=== PATIENT | male | born 1950 | race Caucasian/White ===

== ENCOUNTER 2023-08-21 07:02 | Day surgery (SDC) | payer MEDICARE, SELFPAY ==
--- NOTE | 2023-08-21 06:50 | W.PREOPHP ---
Assessment and Plan Assessment and plan (1) Nuclear age-related cataract, right eye: Status: Acute Assessment and plan: Assessment: Visually significant cataract of the right eye. Plan: Cataract extraction with lens implantation of the right eye. (2) Cortical age-related cataract, right eye: Status: Acute Assessment and plan: Assessment: Visually significant cataract of the right eye. Plan: Cataract extraction with lens implantation of the right eye (3) Posterior subcapsular age-related cataract, right eye: Status: Acute Assessment and plan: Assessment: Visually significant cataract of the right eye. Plan: Cataract extraction with lens implantation of the right eye History of Present Illness History of Present Illness Chief Complaint: Progressive decreased vision, both eyes Narrative: The patient is a 72-year-old male who presents with progressive decreased vision in both eyes at both distance and near, especially near. He notes significant difficulty reading. He has difficulty with glare at night. He notes his vision is foggy and his glasses do not work well. Review of Systems All systems reviewed & are unremarkable except as noted in HPI and below PFSH All Active Problems Nuclear age-related cataract, right eye (Acute) Cortical age-related cataract, right eye (Acute) Posterior subcapsular age-related cataract, right eye (Acute) Medical History Chronic arthritis Coronary arteriosclerosis GERD (gastroesophageal reflux disease) History of myocardial problem HLD (hyperlipidemia) Hx of cardiomyopathy Per pt. F/U with Dr. Kaufman annually. Hx of hiatal hernia Hx of myocardial infarction 11/2019 Psoriasis Seasonal allergic rhinitis Surgical History (Updated 08/21/23 @ 07:25 by Richmond Adkins) History of fundoplication Hx of tonsillectomy Social History Smoking/Tobacco Use Status: Former Tobacco Use Quit Date: 11/16/17 Smoking risk assessment performed?: Yes Alcohol Intake: current Alcohol Intake frequency: a few times a month Alcohol type: wine Drug use: Never Substance use type: does not use Housing: house Do you feel safe at home: Yes Do you feel safe in your relationship?: Yes Meds Allergies and Home Medications Allergies Allergy/AdvReac Type Severity Reaction Status Date / Time No Known Allergies Allergy Unverified 08/20/23 13:47 Home Medications Medication Instructions Recorded Confirmed Type ascorbic acid (vitamin C) 500 mg 500 mg PO DAILY 08/19/23 08/21/23 History tablet (Vitamin C) bupropion HCl 300 mg 24 hr tablet, 300 mg PO DAILY 08/19/23 08/21/23 History extended release cholecalciferol (vitamin D3) 50 2,000 unit PO DAILY 08/19/23 08/21/23 History mcg (2,000 unit) tablet (Vitamin D3) clobetasol 0.05 % topical gel 1 applic topical BID 08/19/23 08/20/23 History gabapentin 600 mg tablet 600 mg PO TID 08/19/23 08/21/23 History levothyroxine 25 mcg tablet 25 mcg PO DAILY 08/19/23 08/21/23 History mecobalamin (vitamin B12) 1,000 500 mcg PO DAILY 08/19/23 08/21/23 History mcg chewable tablet (B12 Active) metoprolol succinate 25 mg 25 mg PO DAILY 08/19/23 08/21/23 History tablet,extended release 24 hr mometasone 0.1 % topical cream 1 applic topical BID 08/19/23 08/20/23 History multivitamin 1 tab PO DAILY 08/19/23 08/21/23 History naproxen 500 mg tablet 500 mg PO BID 08/19/23 08/21/23 History simvastatin 20 mg tablet 20 mg PO HS 08/19/23 08/21/23 History Exam Eyes Other: Most recent ocular examination revealed corrected visual acuity of 20/20 OD, 20/25 OS. Extract motility is normal. Intraocular pressure is 11 OD, 10 OS. Slit-lamp examination is significant for pupils dilating to 6 mm OU. Mild cortical cataract OU. Mild nuclear cataract OU. Trace posterior subcapsular cataracts OU. Funduscopic examination reveals disc cupping of 0.3 OU with normal vessels, macula, peripheral retina and vitreous. Resp Auscultation: clear to auscultation bilaterally Cardio Rate: regular rate Rhythm: regular rhythm
[2023-08-21 07:32] VITALS: BP 140/78; PULSE 61; RESP 16; TEMP 36.5; O2SAT 99
[2023-08-21] MEDS: Tropicam./Phenyleph. (1/2.5%) 5 ML BTL OD ×3 (07:43→07:57)
--- NOTE | 2023-08-21 08:29 | W.ANESPRE ---
General Info Date of Service Date Performed: 08/21/23 Height: 5 ft 2 in Weight: 56.4 kg Body Mass Index (BMI): 22.7 Surgical Procedure: Operation Date: 08/21/23 09:40 Proposed Procedure Side Surgeon p Cataract Extraction with IOL Implant Right Bj Barrett MD Meds Allergies and Home Medications Allergies Allergy/AdvReac Type Severity Reaction Status Date / Time No Known Allergies Allergy Unverified 08/20/23 13:47 Home Medication Medication Instructions Recorded ascorbic acid (vitamin C) 500 mg 500 mg PO DAILY 08/19/23 tablet (Vitamin C) bupropion HCl 300 mg 24 hr tablet, 300 mg PO DAILY 08/19/23 extended release cholecalciferol (vitamin D3) 50 2,000 unit PO DAILY 08/19/23 mcg (2,000 unit) tablet (Vitamin D3) clobetasol 0.05 % topical gel 1 applic topical BID 08/19/23 gabapentin 600 mg tablet 600 mg PO TID 08/19/23 levothyroxine 25 mcg tablet 25 mcg PO DAILY 08/19/23 mecobalamin (vitamin B12) 1,000 500 mcg PO DAILY 08/19/23 mcg chewable tablet (B12 Active) metoprolol succinate 25 mg 25 mg PO DAILY 08/19/23 tablet,extended release 24 hr mometasone 0.1 % topical cream 1 applic topical BID 08/19/23 multivitamin 1 tab PO DAILY 08/19/23 naproxen 500 mg tablet 500 mg PO BID 08/19/23 simvastatin 20 mg tablet 20 mg PO HS 08/19/23 Current Visit Medications: Current Medications Generic Name Dose Route Start Last Admin Trade Name Zuhairq PRN Reason Stop Dose Admin Acetaminophen 1,000 mg 08/21/23 06:00 Acetaminophen 500 Mg Tab PO 09/20/23 05:59 Q4H PRN PRN Balanced Salt Solution 500 ml 08/21/23 06:00 Balanced Salt Soln.-Plus 500 Ml Bag OP 09/20/23 05:59 DIRECTED EH Miscellaneous Medication 0 ml 08/21/23 06:00 Prednisolone 1%, Moxifloxacin 0.5%, Nepafenac 0.1% 5ml Btl OD 09/20/23 05:59 DIRECTED EH Miscellaneous Medication 0 ml 08/21/23 06:00 08/21/23 07:57 Tropicam./Phenyleph. (1/2.5%) 5 Ml Btl OD 09/20/23 05:59 1 drp DIRECTED EH Administration Tetracaine HCl 0 ml 08/21/23 06:00 Tetracaine 0.5% 4 Ml Btl OD 09/20/23 05:59 DIRECTED EH PFSH Active Problems Active Problems: Problem Status Onset Code Nuclear age-related cataract, right eye H25.11 Cortical age-related cataract, right eye H25.011 Posterior subcapsular age-related cataract, right eye H25.041 Medical History Medical History Chronic arthritis Coronary arteriosclerosis GERD (gastroesophageal reflux disease) History of myocardial problem HLD (hyperlipidemia) Hx of cardiomyopathy Per pt. F/U with Dr. Kaufman annually. Hx of hiatal hernia Hx of myocardial infarction 11/2019 Psoriasis Seasonal allergic rhinitis Surgical History Surgical History (Updated 08/21/23 @ 07:25 by Richmond Adkins) History of fundoplication Hx of tonsillectomy Tobacco Smoking/Tobacco Use Status: Former Tobacco Use Alcohol Alcohol Intake: current Alcohol intake frequency: a few times a month Alcohol type: wine Substance Use Substance use: Never Substance use type: does not use Vital Signs and Lab Results Vital Signs Most Recent Vital Signs in EMR: Most Recent Vital Signs Temp Pulse Resp BP Pulse Ox 36.5 C 61 16 140/78 99 08/21/23 07:32 08/21/23 07:32 08/21/23 07:32 08/21/23 07:32 08/21/23 07:32 Lab Results Blood Type / Crossmatch: No Data to Display Complete Blood Count: No Data to Display Complete Metabolic Panel: No Data to Display Liver Function Panel: No Data to Display Coagulation Panel: No Data to Display Cardiac Panel: No Data to Display Arterial Blood Gas: No Data to Display Venous Blood Gas: No Data to Display Pancreas Panel: No Data to Display Thyroid Panel: No Data to Display Infectious Disease: No Data to Display Blood Cultures: No Data to Display Toxicology Panel: No Data to Display Anesthesia Assessment and Plan Anesthesia History Personal History: No History of Anesthesia Complications Family History: No Family History of Anesthesia Complications Exercise Tolerance Exercise Tolerance: Metabolic Equivalents>4 Pertinent Negatives Pertinent Negatives: No Symptoms of GERD, No Major Cardiovascular Symptoms or Complaints and No Major Pulmonary Symptoms or Complaints Cardiac & Pulmonary Exam Cardiac Exam: Normal S1/S2 Heart Sounds Pulmonary Exam: Clear Bilateral Breath Sounds Implantable Cardiac Device Does patient have a Pacemaker or an ICD?: No Airway Exam Known Difficult Airway: No Mallampati Class: 2 Mouth Opening: Normal (> 3cm) Thyromental Distance: Greater than 3 cm Neck Range of Motion: Full ROM Neck Circumference: Normal Teeth Condition: Normal Dentition and Loose or Chipped (a couple of chipped teeth nothing loose per patient) ASA Classification ASA Score: ASA 2 Emergency Case?: No NPO Status NPO Status: NPO Clears >2 hours, Solids >8 hours Anesthesia Plan Resuscitation Status: Full Code Anesthesia Technique: MAC Anesthesia Airway Planned: Natural Airway Monitors Used: Standard Monitors
[2023-08-21 09:11] VITALS: BMI 22.7
[2023-08-21] MEDS: Tetracaine 0.5% 4 ML BTL OD (09:12)
[2023-08-21] MEDS: Povidone-Iodine Ophth 30 ML BTL (09:14)
[2023-08-21] MEDS: Phenylephrine/Lidocaine (15/10) MG/ML 1 ML VIAL (09:17)
[2023-08-21] MEDS: Balanced Salt Soln.-PLUS 500 ML BAG OP (09:17)
[2023-08-21] MEDS: Duovisc Viscoelastic System EACH 1 EACH (09:17)
[2023-08-21] MEDS: Lidocaine 1% Pres-Free 5 ML VIAL (09:18)
[2023-08-21 09:36] VITALS: BP 136/81; PULSE 61; RESP 18; TEMP 36.6; O2SAT 99
--- NOTE | 2023-08-21 09:36 | W.PM.DSUDISC ---
Date of service: 08/21/23 Time of Service: 09:36 Discharge Plan Disposition Patient Disposition: Home Discharge Details Attending Provider: Bj Barrett Primary Care Provider: Judith Vick Home Meds and New Rx's Prescriptions: No Action multivitamin Tablet 1 tab PO DAILY gabapentin 600 mg Tablet 600 mg PO TID levothyroxine 25 mcg Tablet 25 mcg PO DAILY clobetasol 0.05 % Gel 1 applic TOPICAL BID ascorbic acid (vitamin C) [Vitamin C] 500 mg Tablet 500 mg PO DAILY simvastatin 20 mg Tablet 20 mg PO HS metoprolol succinate 25 mg Tablet Extended Release 24 Hr 25 mg PO DAILY naproxen 500 mg Tablet 500 mg PO BID mometasone 0.1 % Cream 1 applic TOPICAL BID bupropion HCl 300 mg Tablet Extended Release 24 Hr 300 mg PO DAILY cholecalciferol (vitamin D3) [Vitamin D3] 50 mcg (2,000 unit) Tablet 2,000 unit PO DAILY mecobalamin (vitamin B12) [B12 Active] 1,000 mcg Tablet,Chewable 500 mcg PO DAILY Discharge Instructions Stand Alone Forms: Post-op Topical Cataract, Renee Zurita (DSU) Discharge Orders Discharge Orders: Discharge Order (Routine); Ordered 08/21/23 Ordered By: Bj Barrett DS: Diagnosis Discharge Diagnosis (1) Nuclear age-related cataract, right eye: Status: Resolved (2) Cortical age-related cataract, right eye: Status: Resolved (3) Posterior subcapsular age-related cataract, right eye: Status: Resolved
--- NOTE | 2023-08-21 09:40 | W.PM.OP ---
Date of service: 08/21/23 Time of Service: 09:40 Operative Note Operative Note DATE OF PROCEDURE: 08/21/23 PRE-OP DIAGNOSIS: Nuclear/cortical/posterior subcapsular cataract, right eye POST-OP DIAGNOSIS: same PROCEDURE: Cataract extraction using phacoemulsification with intraocular lens implant, right eye SURGEON: Bj Barrett ANESTHESIA TYPE: Local By Surgeon and MAC Refer to Anesthesia Record ESTIMATED BLOOD LOSS: 0 PATHOLOGY: none sent COMPLICATIONS: None Patient was transported to: same day Patient's condition: stable Implants: Darrell Clareon [id number] Indications: Progressive decreased vision due to cataract, right eye Procedure Description: CATARACT SURGERY OPERATIVE REPORT PREOPERATIVE DIAGNOSIS: Nuclear/cortical/posterior subcapsular cataract, right eye POSTOPERATIVE DIAGNOSIS: Same OPERATION: Cataract extraction using phacoemulsification with posterior chamber intraocular lens implant, right eye. IOL: IOL Video News Editor/Model: Darrell Clareon [id number] IOL Power: + 14.5 diopters IOL Serial Number: [id number] Optic Diameter: 6.0mm Haptic/Overall Diameter: 13.0mm PHACO INFO: Darrell Origami Logicurion Vision System with OZil and Active Fluidics Cumulative Dispersed Energy (CDE): 3.85 seconds SURGEON: Bj Barrett MD, RADHA ANESTHESIA: Monitored Anesthesia Care (MAC), with local sub-tenon's anesthetic infiltration COMPLICATIONS: None SPECIMENS: None INDICATIONS FOR PROCEDURE: The patient is a 73-year-old male with history of myopic astigmatism who has developed a symptomatic nuclear/cortical/posterior subcapsular cataract in the right eye. He is significantly symptomatic that he desires cataract surgery and attempt to improve and maximize his vision. The option of cataract surgery was offered to the patient and he wished to proceed. See office notes for detailed information. PROCEDURE: The correct surgical eye was identified and marked as the right eye and the pupil was dilated in the preoperative area using mydriatics and cycloplegics. The dilated pupil size was 7.0 mm. The patient elected to proceed without oral sedation. The patient was brought to the operating room where cardiopulmonary monitoring was instituted and surgical time-out was performed, confirming the correct operative eye and IOL power. Topical anesthesia was administered and ophthalmic povidone-iodine 5% was instilled into the conjunctival fornices. The mercedez-ocular area was prepped with Betadine 10% solution and draped in the usual sterile fashion for intraocular surgery, including an aperture drape. A Tegaderm transparent film dressing was cut in half and used to cover the lashes and lid margins. Care was taken to sequester the lashes and lid margins under the Tegaderm dressing. A lid speculum was placed between the lids of the operative eye and the Analy-Destin operating microscope was maneuvered into position. Anurag scissors were then used to make a conjunctival buttonhole approximately 6mm posterior to the limbus in the inferonasal quadrant. Blunt dissection was carried out to expose bare sclera, and a blunt-tipped sub-tenon?s anesthesia cannula was introduced and passed posteriorly along the globe where non-preserved plain lidocaine was injected into posterior sub-Tenon?s space. A sideport knife was used to make a paracentesis port. Intraocular phenylephrine/lidocaine was injected into the anterior chamber. The anterior chamber was then filled with viscoelastic. A keratome knife was used to construct a two--plane clear corneal tunnel extending 2.0mm into clear cornea. A flap was raised on the anterior capsule and capsulorhexis forceps were used to complete a continuous curvilinear capsulorhexis of 5.5 mm. Balanced salt solution was then used to perform cortical cleaving hydrodissection and nuclear hydrodelineation until the lens could be freely rotated within the capsular bag. The lens nucleus was then disassembled and removed within the capsular bag and iris plane using phacoemulsification. Residual cortical material was removed using the I/A handpiece. The posterior capsule was carefully polished to remove as much residual lens epithelial cells as safely possible. The capsular bag was then inflated and the anterior chamber deepened with cohesive viscoelastic. The lens implant described above was inserted into the capsular bag using the Darrell Autonome Injector. A Kuglen hook was used to dial the IOL into position. Residual viscoelastic was then removed first from posterior to the IOL, then from the anterior chamber using the I/A handpiece. The lens implant was noted to center nicely within the capsular bag. The incisions were stromally hydrated, and the anterior chamber was reformed using BSS. Then 0.5cc of moxifloxacin 1.0mg/ml were injected into the capsular bag and anterior chamber. The incisions were checked with a Weck spear and found to be secure. Several drops of ophthalmic povidone-iodine 5% were then applied to the eye followed by two drops of Imprimis combination prednisolone/moxifloxacin/nepafenac solution. The drapes were removed and a clear plastic protective eye shield was placed over the eye. The patient was then returned to [facility] in stable condition.
--- NOTE | 2023-08-21 10:08 | W.ANESPOSTOP ---
Postoperative Evaluation Date, Time and Location Date Performed: 08/21/23 Time Performed: 09:42 Patient Location: Day Surgery Unit Vital Signs Most Recent Imported Vital Signs: Most Recent Vital Signs Temp Pulse Resp BP Pulse Ox 36.6 C 61 18 136/81 99 08/21/23 09:36 08/21/23 09:36 08/21/23 09:36 08/21/23 09:36 08/21/23 09:36 Pain Score Most Recent Pain Score: Most Recent Pain Score Pain Level 0 08/21/23 09:36 Assessment Mental Status: Awake (Alert & Oriented to Patient Baseline) Airway and Respiratory Function: Patent airway with normal (patient baseline) respiratory exam Cardiovascular Function: Hemodynamically Stable Hydration Status: Adequately Hydrated Nausea & Vomiting: No Nausea or Vomiting Pain: Pt. Denies Any Pain Peripheral Nerve Block: Patient did not receive a nerve block
== END 2023-08-21 09:57 | disposition home or self-care (01) ==
PROVIDERS: PCP Nurse Practitioner Family; Visit Provider Ophthalmology
PROC: (CPT 66984; principal; 2023-08-21 09:30)
DX: H25.11 Age-related nuclear cataract, right eye (principal); H25.011 Cortical age-related cataract, right eye; H25.041 Posterior subcapsular polar age-related cataract, right eye; K21.9 Gastro-esophageal reflux disease without esophagitis
CPT/HCPCS: 66984; V2632

== ENCOUNTER 2023-09-04 07:17 | Day surgery (SDC) | payer MEDICARE, SELFPAY ==
[2023-09-04 07:28] VITALS: BP 130/82; PULSE 69; RESP 16; TEMP 36.6; O2SAT 97
[2023-09-04] MEDS: Tropicam./Phenyleph. (1/2.5%) 5 ML BTL OS ×3 (07:35→07:52)
--- NOTE | 2023-09-04 08:11 | W.ANESPRE ---
General Info Date of Service Date Performed: 09/04/23 Height: 5 ft 2 in Weight: 56 kg Body Mass Index (BMI): 22.6 Surgical Procedure: Operation Date: 09/04/23 09:40 Proposed Procedure Side Surgeon p Cataract Extraction with IOL Implant Left Bj Barrett MD Meds Allergies and Home Medications Allergies Allergy/AdvReac Type Severity Reaction Status Date / Time No Known Allergies Allergy Unverified 09/04/23 07:39 Home Medication Medication Instructions Recorded ascorbic acid (vitamin C) 500 mg 500 mg PO DAILY 08/19/23 tablet (Vitamin C) bupropion HCl 300 mg 24 hr tablet, 300 mg PO DAILY 08/19/23 extended release cholecalciferol (vitamin D3) 50 2,000 unit PO DAILY 08/19/23 mcg (2,000 unit) tablet (Vitamin D3) clobetasol 0.05 % topical gel 1 applic topical BID 08/19/23 gabapentin 600 mg tablet 600 mg PO TID 08/19/23 levothyroxine 25 mcg tablet 25 mcg PO DAILY 08/19/23 mecobalamin (vitamin B12) 1,000 500 mcg PO DAILY 08/19/23 mcg chewable tablet (B12 Active) metoprolol succinate 25 mg 25 mg PO DAILY 08/19/23 tablet,extended release 24 hr mometasone 0.1 % topical cream 1 applic topical BID 08/19/23 multivitamin 1 tab PO DAILY 08/19/23 naproxen 500 mg tablet 500 mg PO BID 08/19/23 simvastatin 20 mg tablet 20 mg PO HS 08/19/23 Current Visit Medications: Current Medications Generic Name Dose Route Start Last Admin Trade Name Zuhairq PRN Reason Stop Dose Admin Acetaminophen 1,000 mg 09/04/23 06:00 Acetaminophen 500 Mg Tab PO 10/04/23 05:59 Q4H PRN PRN Balanced Salt Solution 500 ml 09/04/23 06:00 Balanced Salt Soln.-Plus 500 Ml Bag OP 10/04/23 05:59 DIRECTED EH Miscellaneous Medication 0 ml 09/04/23 06:00 Prednisolone 1%, Moxifloxacin 0.5%, Nepafenac 0.1% 5ml Btl OS 10/04/23 05:59 DIRECTED EH Miscellaneous Medication 0 ml 09/04/23 06:00 09/04/23 07:52 Tropicam./Phenyleph. (1/2.5%) 5 Ml Btl OS 10/04/23 05:59 1 drp DIRECTED EH Administration Tetracaine HCl 0 ml 09/04/23 06:00 Tetracaine 0.5% 4 Ml Btl OS 10/04/23 05:59 DIRECTED EH PFSH Active Problems Active Problems: Problem Status Onset Code Posterior subcapsular age-related cataract of left eye H25.042 Cortical age-related cataract, left eye H25.012 Nuclear age-related cataract, left eye H25.12 Nuclear age-related cataract, right eye H25.11 Cortical age-related cataract, right eye H25.011 Posterior subcapsular age-related cataract, right eye H25.041 Medical History Medical History Hx of cardiomyopathy Per pt. F/U with Dr. Kaufman annually. Hx of myocardial infarction 11/2019 Hx of hiatal hernia HLD (hyperlipidemia) Psoriasis Coronary arteriosclerosis History of myocardial problem GERD (gastroesophageal reflux disease) Chronic arthritis Seasonal allergic rhinitis Surgical History Surgical History Hx of tonsillectomy History of fundoplication Tobacco Smoking/Tobacco Use Status: Former Tobacco Use Alcohol Alcohol Intake: current Alcohol intake frequency: a few times a month Alcohol type: wine Substance Use Substance use: Never Substance use type: does not use Vital Signs and Lab Results Vital Signs Most Recent Vital Signs in EMR: Most Recent Vital Signs Temp Pulse Resp BP Pulse Ox 36.6 C 69 16 130/82 97 09/04/23 07:28 09/04/23 07:28 09/04/23 07:28 09/04/23 07:28 09/04/23 07:28 Lab Results Blood Type / Crossmatch: No Data to Display Complete Blood Count: No Data to Display Complete Metabolic Panel: No Data to Display Liver Function Panel: No Data to Display Coagulation Panel: No Data to Display Cardiac Panel: No Data to Display Arterial Blood Gas: No Data to Display Venous Blood Gas: No Data to Display Pancreas Panel: No Data to Display Thyroid Panel: No Data to Display Infectious Disease: No Data to Display Blood Cultures: No Data to Display Toxicology Panel: No Data to Display Anesthesia Assessment and Plan Anesthesia History Personal History: No History of Anesthesia Complications Family History: No Family History of Anesthesia Complications Exercise Tolerance Exercise Tolerance: Metabolic Equivalents>4 Pertinent Negatives Pertinent Negatives: No Major Cardiovascular Symptoms or Complaints and No Major Pulmonary Symptoms or Complaints Cardiac & Pulmonary Exam Cardiac Exam: Normal S1/S2 Heart Sounds Pulmonary Exam: Clear Bilateral Breath Sounds Implantable Cardiac Device Does patient have a Pacemaker or an ICD?: No Airway Exam Known Difficult Airway: No Mallampati Class: 2 Mouth Opening: Normal (> 3cm) Thyromental Distance: Greater than 3 cm Neck Range of Motion: Full ROM Neck Circumference: Normal Teeth Condition: Normal Dentition and Loose or Chipped (a couple of chipped teeth nothing loose per patient) ASA Classification ASA Score: ASA 2 Emergency Case?: No NPO Status NPO Status: NPO Clears >2 hours, Solids >8 hours Anesthesia Plan Resuscitation Status: Full Code Anesthesia Technique: MAC Anesthesia Airway Planned: Natural Airway Monitors Used: Standard Monitors
[2023-09-04 08:12] VITALS: BMI 22.6
[2023-09-04] MEDS: Balanced Salt Soln.-PLUS 500 ML BAG OP (08:59)
[2023-09-04] MEDS: Tetracaine 0.5% 4 ML BTL OS (09:01)
[2023-09-04] MEDS: Duovisc Viscoelastic System EACH 1 EACH (09:01)
[2023-09-04] MEDS: Lidocaine 1% Pres-Free 5 ML VIAL (09:02)
[2023-09-04] MEDS: Povidone-Iodine Ophth 30 ML BTL (09:04)
[2023-09-04] MEDS: Phenylephrine/Lidocaine (15/10) MG/ML 1 ML VIAL (09:04)
--- NOTE | 2023-09-04 09:19 | W.PM.DSUDISC ---
Date of service: 09/04/23 Time of Service: 09:19 Discharge Plan Disposition Patient Disposition: Home Discharge Details Attending Provider: Bj Barrett Primary Care Provider: Judith Vick Home Meds and New Rx's Prescriptions: No Action multivitamin Tablet 1 tab PO DAILY gabapentin 600 mg Tablet 600 mg PO TID levothyroxine 25 mcg Tablet 25 mcg PO DAILY clobetasol 0.05 % Gel 1 applic TOPICAL BID ascorbic acid (vitamin C) [Vitamin C] 500 mg Tablet 500 mg PO DAILY simvastatin 20 mg Tablet 20 mg PO HS metoprolol succinate 25 mg Tablet Extended Release 24 Hr 25 mg PO DAILY naproxen 500 mg Tablet 500 mg PO BID mometasone 0.1 % Cream 1 applic TOPICAL BID bupropion HCl 300 mg Tablet Extended Release 24 Hr 300 mg PO DAILY cholecalciferol (vitamin D3) [Vitamin D3] 50 mcg (2,000 unit) Tablet 2,000 unit PO DAILY mecobalamin (vitamin B12) [B12 Active] 1,000 mcg Tablet,Chewable 500 mcg PO DAILY Discharge Instructions Stand Alone Forms: Post-op Topical Cataract, Renee Zurita (DSU) Discharge Orders Discharge Orders: Discharge Order (Routine); Ordered 09/04/23 Ordered By: Bj Barrett DS: Diagnosis Discharge Diagnosis (1) Posterior subcapsular age-related cataract of left eye: Status: Resolved (2) Cortical age-related cataract, left eye: Status: Resolved (3) Nuclear age-related cataract, left eye: Status: Resolved
[2023-09-04 09:20] VITALS: BP 128/85; PULSE 63; RESP 16; TEMP 36.3; O2SAT 97
--- NOTE | 2023-09-04 09:20 | W.PM.OP ---
Date of service: 09/04/23 Time of Service: 09:20 Operative Note Operative Note DATE OF PROCEDURE: 09/04/23 POST-OP DIAGNOSIS: same PROCEDURE: Cataract extraction using phacoemulsification with intraocular lens implant, left eye SURGEON: Bj Barrett ANESTHESIA TYPE: Local By Surgeon and MAC Refer to Anesthesia Record PATHOLOGY: none sent COMPLICATIONS: None Patient was transported to: same day Patient's condition: stable Implants: Darrell Clareon [id number] Indications: Progressive decreased vision due to cataract, left eye Procedure Description: CATARACT SURGERY OPERATIVE REPORT PREOPERATIVE DIAGNOSIS: Nuclear/cortical/posterior subcapsular cataract, left eye POSTOPERATIVE DIAGNOSIS: Same OPERATION: Cataract extraction using phacoemulsification with posterior chamber intraocular lens implant, left eye. IOL: IOL Artist Mannequin Coloring/Model: Darrell Clareon [id number] IOL Power: + 15.0 diopters IOL Serial Number: [id number] Optic Diameter: 6.0mm Haptic/Overall Diameter: 13.0mm PHACO INFO: Darrell Valence Healthurion Vision System with OZil and Active Fluidics Cumulative Dispersed Energy (CDE): 8.15 seconds SURGEON: Bj Barrett MD, RADHA ANESTHESIA: Monitored Anesthesia Care (MAC), with local sub-tenon's anesthetic infiltration COMPLICATIONS: None SPECIMENS: None INDICATIONS FOR PROCEDURE: The patient is a 73-year-old gentleman with history of diminished visual acuity in both eyes secondary to the development of bilateral nuclear/cortical/posterior subcapsular cataract. He has already undergone cataract surgery in the right eye and is doing well postoperatively. He now presents for cataract surgery in the left eye. See office notes for detailed information. PROCEDURE: The correct surgical eye was identified and marked as the left eye and the pupil was dilated in the preoperative area using mydriatics and cycloplegics. The dilated pupil size was 7.0 mm. The patient elected to proceed without oral sedation. The patient was brought to the operating room where cardiopulmonary monitoring was instituted and surgical time-out was performed, confirming the correct operative eye and IOL power. Topical anesthesia was administered and ophthalmic povidone-iodine 5% was instilled into the conjunctival fornices. The mercedez-ocular area was prepped with Betadine 10% solution and draped in the usual sterile fashion for intraocular surgery, including an aperture drape. A Tegaderm transparent film dressing was cut in half and used to cover the lashes and lid margins. Care was taken to sequester the lashes and lid margins under the Tegaderm dressing. A lid speculum was placed between the lids of the operative eye and the Darrell LuxOR Revalia operating microscope was maneuvered into position. Anurag scissors were then used to make a conjunctival buttonhole approximately 6mm posterior to the limbus in the inferonasal quadrant. Blunt dissection was carried out to expose bare sclera, and a blunt-tipped sub-tenon?s anesthesia cannula was introduced and passed posteriorly along the globe where non-preserved plain lidocaine was injected into posterior sub-Tenon?s space. A sideport knife was used to make a paracentesis port. Intraocular phenylephrine/lidocaine was injected into the anterior chamber. The anterior chamber was then filled with viscoelastic. A keratome knife was used construct a two-plane clear corneal tunnel extending 2.0mm into clear cornea. A flap was raised on the anterior capsule and capsulorhexis forceps were used to complete a continuous curvilinear capsulorhexis of 5.5 mm. Balanced salt solution was then used to perform cortical cleaving hydrodissection and nuclear hydrodelineation until the lens could be freely rotated within the capsular bag. The lens nucleus was then disassembled and removed within the capsular bag and iris plane using phacoemulsification. Residual cortical material was removed using the irrigation/aspiration handpiece. The posterior capsule was carefully polished to remove as much residual lens epithelial cells as safely possible. The capsular bag was then inflated and the anterior chamber deepened with viscoelastic. The lens implant described above was inserted into the capsular bag using the Darrell Autonome Injector. A Kuglen hook was used to dial the IOL into position. Residual viscoelastic was then removed first from posterior to the IOL, then from the anterior chamber using the I/A handpiece. The lens implant was noted to center nicely within the capsular bag. The incisions were stromally hydrated, and the anterior chamber was reformed using BSS. Then 0.5cc of moxifloxacin 1.0mg/ml were injected into the capsular bag and anterior chamber. The incisions were checked with a Weck spear and found to be secure. Several drops of ophthalmic povidone-iodine 5% were then applied to the eye followed by two drops of Imprimis combination prednisolone/moxifloxacin/nepafenac solution. The drapes were removed and a clear plastic protective eye shield was placed over the eye. The patient was then returned to [facility] Day [facility] in stable condition.
--- NOTE | 2023-09-04 09:46 | W.ANESPOSTOP ---
Postoperative Evaluation Date, Time and Location Date Performed: 09/04/23 Time Performed: 09:19 Patient Location: Day Surgery Unit Vital Signs Most Recent Imported Vital Signs: Most Recent Vital Signs Temp Pulse Resp BP Pulse Ox 36.3 C L 63 16 128/85 97 09/04/23 09:20 09/04/23 09:20 09/04/23 09:20 09/04/23 09:20 09/04/23 09:20 Pain Score Most Recent Pain Score: Most Recent Pain Score Pain Level 0 09/04/23 09:20 Assessment Mental Status: Awake (Alert & Oriented to Patient Baseline) Airway and Respiratory Function: Patent airway with normal (patient baseline) respiratory exam Cardiovascular Function: Hemodynamically Stable Hydration Status: Adequately Hydrated Nausea & Vomiting: No Nausea or Vomiting Pain: Pt. Denies Any Pain Peripheral Nerve Block: Patient did not receive a nerve block
== END 2023-09-04 09:40 | disposition home or self-care (01) ==
LOC: SUR 07:17
PROVIDERS: PCP Nurse Practitioner Family; Visit Provider Ophthalmology
PROC: (CPT 66984; principal; 2023-09-04 09:30)
DX: H25.042 Posterior subcapsular polar age-related cataract, left eye (principal); H25.012 Cortical age-related cataract, left eye; H25.12 Age-related nuclear cataract, left eye; K21.9 Gastro-esophageal reflux disease without esophagitis; Z98.41 Cataract extraction status, right eye
CPT/HCPCS: 66984; 00123; V2632